=== PATIENT | female | born 1995 | race Hispanic/Latino ===

== ENCOUNTER 2021-02-08 15:13 | Emergency (ER) | payer OTHER ==
[2021-02-08 18:00] LABS: Bilirubin Negative (Negative); Blood, Urine Negative (Negative); Clarity Clear (Clear); Glucose, Urine (Dipstick) Normal (Negative); Ketone, Urine Negative (Negative); Leukocyte Negative Leu/uL (Negative); Nitrite Negative (Negative); Protein, Urine (Dipstick) 20 mg/dL (Neg-Trace); Specific Gravity, Urine 1.031 (1.002-1.036); Urobilinogen Normal mg/dL (Less than 2); pH, Urine 6.5 (5.0-9.0)
== END 2021-02-08 18:40 | disposition home or self-care (01) ==
LOC: ERS 15:13
DX: R10.84 Generalized abdominal pain (principal)
CPT/HCPCS: 81003; 99284

== ENCOUNTER 2021-08-23 19:52 | Emergency (ER) | payer BC ==
[2021-08-23 20:30] LABS: Bilirubin Negative (Negative); Blood, Urine Negative (Negative); Clarity Clear (Clear); Glucose, Urine (Dipstick) Normal (Negative); Ketone, Urine Negative (Negative); Leukocyte Negative Leu/uL (Negative); Nitrite Negative (Negative); Protein, Urine (Dipstick) Negative (Neg-Trace); Specific Gravity, Urine 1.016 (1.002-1.036); Urobilinogen Normal mg/dL (Less than 2)
[2021-08-23] MEDS ORDERED: Ketorolac Tromethamine 30 MG/ML VIAL ONE (20:51)
[2021-08-23] MEDS ORDERED: Diazepam 5 MG TAB ONE (21:48)
== END 2021-08-23 21:50 | disposition home or self-care (01) ==
LOC: ERS 19:52
DX: M54.50 Low back pain, unspecified (principal)
CPT/HCPCS: 81003; 96372; 99283; J1885